=== PATIENT | female | born 1995 ===

== ENCOUNTER 2017-02-22 21:14 | Emergency (ER) | payer SELFPAY ==
[2017-02-22 21:42] VITALS: BP 127/87; PULSE 106; TEMP 98.4; O2SAT 99
[2017-02-22] MEDS ORDERED: Bacitracin 500 Units/gm Oint Foilpak UD ONE (22:39)
--- NOTE | 2017-02-22 22:52 | C.PDOC ---
History Of Present Illness 21 year old female presents to the ER after she suffered a laceration to her left lower leg by a piece of glass that was sticking out of a garbage bag at home. Patient is up to date with tetanus; denies weakness or numbness. Time Seen by Provider: 02/22/17 21:46 Chief Complaint (Nursing): Abnormal Skin Integrity History Per: Patient History/Exam Limitations: no limitations Onset/Duration Of Symptoms: Hrs Current Symptoms Are (Timing): Still Present Location Of Injury: Left: Leg Quality Of Symptoms: Other (Laceration) Recent travel outside of the [place] States: No Past Medical History Reviewed: Historical Data, Nursing Documentation, Vital Signs Vital Signs: Last Vital Signs Temp 98.4 F 02/22/17 21:36 Pulse 106 H 02/22/17 21:36 Resp 20 02/22/17 23:12 BP 127/87 02/22/17 21:36 Pulse Ox 99 02/23/17 00:19 - Medical History PMH: Asthma Surgical History: Tonsillectomy Family History: States: Unknown Family Hx - Social History Hx Alcohol Use: No Hx Substance Use: No - Immunization History Hx Tetanus Toxoid Vaccination: No Hx Influenza Vaccination: No Hx Pneumococcal Vaccination: No Review Of Systems Musculoskeletal: Positive for: Leg Pain Skin: Positive for: Other (Laceration) Neurological: Negative for: Weakness, Numbness Physical Exam - Physical Exam Appears: Non-toxic Skin: Warm, Dry Head: Atraumatic, Normacephalic Eye(s): bilateral: Normal Inspection Extremity: Normal ROM (x4), Other (4cm superficial laceration to lateral distal left lower leg with minimal active bleeding. No foreign body visualized.) Neurological/Psych: Oriented x3, Normal Speech, Normal Motor, Normal Sensation ED Course And Treatment O2 Sat by Pulse Oximetry: 99 (Room air) Pulse Ox Interpretation: Normal Progress Note: Motrin administered. Patient tolerated wound repair with no difficulty, bacitracin and dressing applied. Patient given proper wound care instructions and advised to follow up for wound check in 2 days and staple removal in 10 days or return if any signs of infection arise. Laceration - Laceration Repair Left Lower Leg Wound Length (In cm): 4 Description Of Wound: Linear Wound Cleansed With: Sterile Saline Wound Examination: Irrigated With Saline (Vigorously), No FB With Wound Exploration Wound Closure: Sriram (x6) Wound Complexity: Simple Disposition Counseled Patient/Family Regarding: Diagnosis, Need For Followup, Rx Given - Disposition Referrals: [facility] [Outside] Disposition: HOME/ ROUTINE Disposition Time: 22:49 Condition: STABLE Additional Instructions: Please follow up with PMD or clinic in 2 days wound check '' Keep wound clean and dry Apply bacitracin ointment Staple removal in 10 days Return to ER if worse Instructions: Laceration (ED), Staple Care (ED) Forms: [employer] (Arabic) - Clinical Impression Clinical Impression: Laceration of lower extremity - PA / HOSTESS HOST / Resident Statement MD/DO has reviewed & agrees with the documentation as recorded. - Scribe Statement The provider has reviewed the documentation as recorded by the Scribjake Padilla All medical record entries made by the Peteribjake were at my direction and personally dictated by me. I have reviewed the chart and agree that the record accurately reflects my personal performance of the history, physical exam, medical decision making, and the department course for this patient. I have also personally directed, reviewed, and agree with the discharge instructions and disposition.
[2017-02-22 23:13] VITALS: RESP 20
== END 2017-02-22 23:12 | disposition home or self-care (01) ==
LOC: C.ER 21:14
DX: S81.812A Laceration without foreign body, left lower leg, initial encounter (principal); W25.XXXA Contact with sharp glass, initial encounter

== ENCOUNTER 2017-03-01 20:40 | Emergency (ER) | payer OTHER ==
--- NOTE | 2017-03-01 21:18 | C.PDOC ---
History Of Present Illness 21 year old female presents to ED for wound check of her left leg after laceration repair one week ago 02/22/17. Denies any fever or pain to area. Time Seen by Provider: 03/01/17 21:10 Chief Complaint (Nursing): Wound Check History Per: Patient History/Exam Limitations: no limitations Onset/Duration Of Symptoms: Days Ago Past Medical History Reviewed: Historical Data, Nursing Documentation, Vital Signs Vital Signs: Last Vital Signs Temp 98.1 F 03/01/17 21:10 Pulse 83 03/01/17 21:10 Resp 20 03/01/17 21:10 BP 117/87 03/01/17 21:10 Pulse Ox 100 03/01/17 21:18 - Medical History PMH: Asthma Surgical History: Tonsillectomy Family History: States: Unknown Family Hx - Social History Hx Alcohol Use: No Hx Substance Use: No - Immunization History Hx Tetanus Toxoid Vaccination: No Hx Influenza Vaccination: No Hx Pneumococcal Vaccination: No Review Of Systems Except As Marked, All Systems Reviewed And Found Negative. Skin: Positive for: Other (wound care) Physical Exam - Physical Exam Appears: Non-toxic, No Acute Distress Skin: Warm, Dry, Other (alma clean dry and intact to left dorsal lower leg) Head: Atraumatic, Normacephalic Eye(s): bilateral: Normal Inspection Neck: Normal ROM Chest: Symmetrical Extremity: Normal ROM, No Tenderness, No Deformity, No Swelling Neurological/Psych: Oriented x3, Normal Speech Gait: Steady ED Course And Treatment O2 Sat by Pulse Oximetry: 100 Medical Decision Making Medical Decision Making: wound appears well healing, no signs of cellulitis. New dressing applied patient was instructed to return in 4-6 days for staple removal Disposition Counseled Patient/Family Regarding: Diagnosis, Need For Followup - Disposition Disposition: HOME/ ROUTINE Disposition Time: 21:17 Condition: GOOD Additional Instructions: Keep wound clean and dry Change dressing daily or can keep wound uncovered at this point Follow up with urgent care or return to ER in 4-6 days for staple removal Instructions: Acute Wound Care (ED) Forms: [employer] (Moroccan) - POA Present On Arrival: None - Clinical Impression Clinical Impression: Visit for wound check
[2017-03-01] MEDS ORDERED: Bacitracin 500 Units/gm Oint Foilpak UD ONE (21:22)
[2017-03-01 22:56] VITALS: BP 117/87; PULSE 83; RESP 20; TEMP 98.1; O2SAT 100
== END 2017-03-01 21:42 | disposition home or self-care (01) ==
LOC: C.ER 20:40
DX: Z51.89 Encounter for other specified aftercare (principal)

== ENCOUNTER 2017-03-08 20:15 | Emergency (ER) | payer OTHER ==
[2017-03-08 20:28] VITALS: BP 125/85; PULSE 83; RESP 20; TEMP 98.4; O2SAT 99
--- NOTE | 2017-03-08 21:09 | C.PDOC ---
History Of Present Illness 21 y/o female here today for staple removal from her left lower leg placed . She denies complaints of pain, or discharge from the wound. Time Seen by Provider: 03/08/17 20:29 Chief Complaint (Nursing): Wound Check History Per: Patient Onset/Duration Of Symptoms: Days Ago (14) Quality Of Symptoms: denies: Painful, Itching, Swollen, Draining Severity: None Additional History Per: Patient Past Medical History Vital Signs: Last Vital Signs Temp 98.4 F 03/08/17 20:26 Pulse 83 03/08/17 20:26 Resp 20 03/08/17 20:26 BP 125/85 03/08/17 20:26 Pulse Ox 99 03/08/17 21:09 - Medical History PMH: Asthma Surgical History: Tonsillectomy Family History: States: Unknown Family Hx - Social History Hx Alcohol Use: No Hx Substance Use: No - Immunization History Hx Tetanus Toxoid Vaccination: No Hx Influenza Vaccination: No Hx Pneumococcal Vaccination: No Review Of Systems Constitutional: Negative for: Fever Skin: Positive for: Lesions Physical Exam - Physical Exam Appears: Well, No Acute Distress Skin: Other (healing laceration to the left lower lateral leg. No erythema, discharge. Mild tenderness. ) ED Course And Treatment O2 Sat by Pulse Oximetry: 99 Medical Decision Making Medical Decision Making: Impression: Staple Removal 7 alma were removed without difficulty. Patient tolerated this well and was discharged in stable condition Disposition Counseled Patient/Family Regarding: Need For Followup - Disposition Disposition: HOME/ ROUTINE Disposition Time: 21:09 Condition: STABLE Additional Instructions: Steripo strips will fall off on their own, you may bathe with them on., Be gentle with skin in area of wound,. still healing. Forms: [employer] (Danish), General Discharge Instructions - Clinical Impression Clinical Impression: Encounter for removal of alma - Scribe Statement The provider has reviewed the documentation as recorded by the Scribe Cookie Peña
== END 2017-03-08 21:24 | disposition home or self-care (01) ==
LOC: C.ER 20:15
DX: Z48.02 Encounter for removal of sutures (principal)